=== PATIENT | female | born 1955 | race Two or more races ===

== ENCOUNTER 2018-09-01 15:04 | Inpatient (IN) | payer MEDICAID, OTHER | END 2018-09-05 02:00 | disposition EMF | LOC: WEST WING 21:40 → DOU IN ICU 09-03 18:10 → ICU WEST 09-04 17:00 → ER 15:04 → WEST WING 09-02 23:38 → OVERFLOW 21:10 → WEST WING 21:45 | DX: J18.9 Pneumonia, unspecified organism (principal); I24.9 Acute ischemic heart disease, unspecified; E44.1 Mild protein-calorie malnutrition ==